=== PATIENT | female | born 1985 | race Two or more races ===

== ENCOUNTER 2024-08-31 20:03 | Outpatient (CLI) | payer OTHER ==
[~2024-08-31] VITALS: Ht 154.9 cm; Wt 84.8 kg
[2024-08-31 19:26] VITALS: BP 123/68
[2024-08-31] MEDS ORDERED: PEPCID AC20 MG PO (20:05)
[2024-08-31] MEDS ORDERED: PRENATAL TABLE1 EAC1 PO (20:05)
[2024-08-31] MEDS ORDERED: VITAMIN D3 COM1 EACH PO (20:06)
[2024-08-31] MEDS ORDERED: VITAMIN D310 MCG/1 M PO (20:06)
[2024-08-31 23:19] VITALS: BP 104/67
[2024-09-01 02:56] VITALS: BP 100/59
[2024-09-01 06:13] VITALS: BP 104/64; O2SAT 99
[2024-09-01 09:45] VITALS: BP 104/64
== END 2024-09-01 09:54 | disposition home or self-care (01) ==
LOC: OBS/DEL 20:03
PROVIDERS: ATTEND Obstetrics & Gynecology
DX: O26.893 Other specified pregnancy related conditions, third trimester (principal); V49.9XXA Car occupant (driver) (passenger) injured in unspecified traffic accident, initial encounter; Z3A.30 30 weeks gestation of pregnancy

== ENCOUNTER 2024-10-07 10:15 | Inpatient (IN) | payer OTHER ==
[~2024-10-07] VITALS: Ht 154.9 cm; Wt 87.5 kg
[2024-10-07 09:02] VITALS: BP 109/71
[~2024-10-07 10:15] MED LIST: PEPCID AC20 MG PO; PRENATAL TABLE1 EAC1 PO; VITAMIN D3 COM1 EACH PO; VITAMIN D310 MCG/1 M PO
[2024-10-07 11:21] VITALS: BP 112/71
[2024-10-07 11:35] VITALS: BP 109/71; BP 112/71
[2024-10-07] MEDS ORDERED: BETAMETHASONE ACETATE,SOD PHOS 30 MG/5 ML ML IM SCH (12:00)
[2024-10-07] MEDS ORDERED: AMPICILLIN SODIUM 2,000 MG VIAL IV ONE (12:45)
[2024-10-07] MEDS ORDERED: RINGERS SOLUTION,LACTATED 1,000 ML IV SCH (12:45)
[2024-10-07 13:19] LABS: HEMATOCRIT 38.9 % (36.0-45.00); HEMOGLOBIN 13.2 g/dL (12.0-15.00); MEAN CELL VOLUME 91.5 fL (80.00-100.00); MEAN CORPUSCULAR HGB CONC 33.8 g/dl (32.0-36.0); PLATELET COUNT 213 K/uL (150-450); RED BLOOD COUNT 4.25 M/uL (4.00-6.00); RED CELL DISTRIBUTION WIDTH 13.9 % (11.5-14.5)
[2024-10-07 13:35] LABS: PARTIAL THROMBOPLASTIN TIME 25.3 SECONDS (22.0-34.0); PROTHROMBIN TIME 10.9 SECONDS (9.0-11.5)
[2024-10-07 13:43] LABS: BILIRUBIN TOTAL 0.52 mg/dL (0.3-1.2); CALCIUM 9.2 mg/dL (8.5-10.1); CREATININE SERUM 0.48 mg/dL (0.55-1.02); GFR 145.52; GLOBULINA 3.7 G/DL (2.4-3.5); POTASSIUM 4.11 mEq/L (3.5-5.1); TOTAL PROTEIN 6.7 gm/dL (6.4-8.2)
[2024-10-07] MEDS ORDERED: AMPICILLIN SODIUM 1,000 MG VIAL IV SCH (16:00)
[2024-10-07 16:10] VITALS: BP 114/69
[2024-10-07] MEDS ORDERED: FAMOtidine 20 MG TABLET PO PRN (19:00)
[2024-10-07] MEDS ORDERED: FAMOTIDINE/PF 20 MG/2 ML VIAL IV PRN (19:15)
[2024-10-07 19:47] VITALS: BP 130/67
[2024-10-07 23:24] VITALS: BP 118/69
[2024-10-08] VITALS (7 sets, daily range): BP systolic 102–116; BP diastolic 50–69
[2024-10-09] VITALS (8 sets, daily range): BP systolic 92–128; BP diastolic 52–68
[2024-10-09] MEDS ORDERED: OXYTOCIN 500 ML IV SCH (05:45)
[2024-10-09] MEDS ORDERED: TERBUTALINE SULFATE 1 MG/ML AMPUL SUBCUTANEO ONE (06:45)
[2024-10-09] MEDS ORDERED: IBUprofen 400 MG TABLET PO PRN (08:00)
[2024-10-09] MEDS ORDERED: OXYTOCIN 1,000 ML IV SCH (08:00)
[2024-10-09] MEDS ORDERED: CHLORHEXIDINE GLUCONATE 120 ML BOTTLE TOP ONE (08:00)
[2024-10-09] MEDS ORDERED: ERYTHROMYCIN BASE OPHT 1GM EACH TUBE OP ONE (10:00)
[2024-10-09] MEDS ORDERED: PNV,CALCIUM 72/IRON/FOLIC ACID 1 TAB TABLET PO NR (10:00)
[2024-10-09] MEDS ORDERED: DOCUSATE CALCIUM 240 MG CAPSULE PO SCH (21:00)
[2024-10-10] VITALS: BP 93/55
[2024-10-10 07:07] LABS: HEMATOCRIT 28.7 % (36.0-45.00); MEAN CORPUSCULAR HGB CONC 34.7 g/dl (32.0-36.0); PLATELET COUNT 164 K/uL (150-450); RED BLOOD COUNT 3.15 M/uL (4.00-6.00); RED CELL DISTRIBUTION WIDTH 13.9 % (11.5-14.5)
[2024-10-10 07:08] LABS: MEAN CORPUSCULAR HEMOGLOBIN 31.7 pg (27.00-32.0)
[2024-10-10] MEDS ORDERED: PNV,CALCIUM 72/IRON/FOLIC ACID 1 TAB TABLET PO SCH (09:00)
[2024-10-10 11:53] VITALS: BP 122/77
[2024-10-10 16:12] VITALS: BP 117/60
[2024-10-11 01:10] VITALS: BP 107/70
[2024-10-11 08:16] VITALS: BP 124/79
== END 2024-10-11 12:36 | disposition home or self-care (01) | DRG 805 ==
LOC: OBS/DEL 10:15 → LDR 11:40 → OBS/DEL 11:40 → LDR 13:28 → OB/GYN 10-09 08:54
PROVIDERS: Obstetrics & Gynecology Gynecology; ADMIT Obstetrics & Gynecology; ATTEND Obstetrics & Gynecology
PROC: 4A1HXCZ Monitoring of Products of Conception, Cardiac Rate, External Approach (ICD-10-PCS; 2024-10-07)
PROC: 10E0XZZ Delivery of Products of Conception, External Approach (ICD-10-PCS; principal; 2024-10-09)
PROC: 0KQM0ZZ Repair Perineum Muscle, Open Approach (ICD-10-PCS; 2024-10-09)
DX: O70.0 First degree perineal laceration during delivery (principal); O60.14X0 Preterm labor third trimester with preterm delivery third trimester, not applicable or unspecified; O69.81X0 Labor and delivery complicated by cord around neck, without compression, not applicable or unspecified; Z37.0 Single live birth; Z3A.36 36 weeks gestation of pregnancy; Z20.822 Contact with and (suspected) exposure to COVID-19